=== PATIENT | male | born 1950 ===

== ENCOUNTER 2017-03-06 01:26 | Emergency (ER) | payer OTHER ==
[2017-03-06 01:27] VITALS: BMI 37.7
[2017-03-06 01:36] VITALS: PULSE 82; O2SAT 98
[2017-03-06 01:54] LABS: URINE BILIRUBIN NEGATIVE (NEGATIVE); URINE BLOOD 3+ (NEGATIVE); URINE CLARITY Hazy (Clear); URINE COLOR Yellow (YELLOW); URINE GLUCOSE (UA) NORMAL (Normal); URINE LEUKOCYTE ESTERASE NEG Leu/uL (Negative); URINE NITRATE NEGATIVE (NEGATIVE); URINE PROTEIN NEGATIVE (NEGATIVE); URINE UROBILINOGEN NORMAL mg/dL (0.2-1.0)
[2017-03-06] MEDS ORDERED: Sodium Chloride 0.9% 500 ML IV STA (01:59)
[2017-03-06] MEDS ORDERED: Sodium Chloride 0.9% 1,000 ML ONE (02:17)
[2017-03-06 02:21] LABS: BASO % 0.2 % (0.0-2.0); EOS # 0.2 K/uL (0.0-0.7); HEMOGLOBIN 13.6 g/dL (12.0-18.0); LYMPH # 1.4 K/uL (1.0-4.3); LYMPH % 14.8 % (20.0-40.0); MEAN CELL VOLUME 86.5 fL (80.0-94.0); MEAN CORPUSCULAR HEMOGLOBIN 27.7 pg (27.0-31.0); MEAN PLATELET VOLUME 10.3 fL (7.2-11.7); MONO # 0.8 K/uL (0.0-0.8); MONO % 9.1 % (0.0-10.0); NEUT # 6.8 K/uL (1.8-7.0); NEUT % 73.9 % (50.0-75.0); RBC 4.9 Mil/uL (4.40-5.90); RED CELL DISTRIBUTION WIDTH 14.1 % (11.5-14.5); WHITE BLOOD COUNT 9.3 K/uL (4.8-10.8)
[2017-03-06 02:28] LABS: ALBUMIN 3.8 g/dL (3.5-5.0)
[2017-03-06 02:31] LABS: ALB/GLOB RATIO 1.3 (1.0-2.1); AST/SGOT 48 U/L (17-59); GFR AFRICAN-AMERICAN > 60; GFR NON-AFRICAN AMERICAN > 60
[2017-03-06 02:32] LABS: ALT/SGPT 56 U/L (21-72); BLOOD UREA NITROGEN 11 mg/dL (9-20); CALCIUM 8.2 mg/dl (8.6-10.4)
--- NOTE | 2017-03-06 04:03 | C.PDOC ---
History Of Present Illness A 66 y/o M c/o sudden onset sharp left flank pain that radiates to the left lower abdomen AMBULATORY CARE COORDINATOR. Pt reports laying in bed where he was turning and felt a sharp pain to the flank area. Pain is worse with movement. Reports nausea, but denies urinary symptoms, weakness, numbness, vomiting, diarrhea, or any other complaints. Time Seen by Provider: 03/06/17 01:50 Chief Complaint (Nursing): Back Pain History Per: Patient History/Exam Limitations: no limitations Onset/Duration Of Symptoms: Hrs, Sudden Onset Current Symptoms Are (Timing): Still Present Quality Of Discomfort: Sharp, "Pain" Severity: Mild Associated Symptoms: denies: New Weakness, New Numbness Exacerbating Factor(s): Movement Recent travel outside of the [place]: No Additional History Per: Patient Past Medical History Reviewed: Historical Data, Nursing Documentation, Vital Signs Vital Signs: Last Vital Signs Temp 97.8 F 03/06/17 04:54 Pulse 82 03/06/17 01:34 Resp 14 03/06/17 04:54 BP 130/80 03/06/17 04:54 Pulse Ox 98 03/06/17 05:05 - Medical History PMH: HTN Denies: Colonic Polyps Family History: States: Unknown Family Hx - Social History Hx Tobacco Use: No Hx Alcohol Use: No Hx Substance Use: No - Immunization History Hx Tetanus Toxoid Vaccination: No Hx Influenza Vaccination: Yes Hx Pneumococcal Vaccination: No Review Of Systems Except As Marked, All Systems Reviewed And Found Negative. Gastrointestinal: Positive for: Nausea, Abdominal Pain (Radiation, left lower abdomen). Negative for: Vomiting, Diarrhea Genitourinary: Negative for: Dysuria, Frequency, Incontinence, Hematuria Musculoskeletal: Positive for: Back Pain (Left flank pain) Neurological: Negative for: Weakness, Numbness Physical Exam - Physical Exam Appears: Non-toxic, No Acute Distress Skin: Warm, Dry Head: Atraumatic, Normacephalic Eye(s): bilateral: Normal Inspection Gastrointestinal/Abdominal: Soft, Tenderness (LLQ ), No Guarding, No Rebound Back: CVA Tenderness (Left ), No Vertebral Tenderness Neurological/Psych: Oriented x3, Normal Speech, Normal Cognition Gait: Steady (Ambulatory in ER) ED Course And Treatment - Laboratory Results Result Diagrams: 03/06/17 02:16 03/06/17 02:16 O2 Sat by Pulse Oximetry: 98 (RA) Pulse Ox Interpretation: Normal Progress Note: Impression: A 66 y/o M c/o sudden onset sharp left flank pain that radiates to the left lower abdomen AMBULATORY CARE COORDINATOR. Plans: CT abd w.o contrast, Valium , Toradol, Flomax, IV fluids. Labbs and CT results d/w pt. Pt is in no acute distress and is resting comfortable and is improving with the flank and abdominal pain. Pt was given medications for the symptom. Pt was instructed to follow up with or clinic for further evaluation. Return precautions were given and understood by patient. Disposition Counseled Patient/Family Regarding: Diagnosis, Need For Followup - Disposition Referrals: Dennys Cardenas MD [Staff Provider] - Disposition: HOME/ ROUTINE Disposition Time: 04:38 Condition: STABLE Additional Instructions: Increase PO fluids Take Flomax and motrin for pain Follow up with urologist Return to ER if worse Prescriptions: Ibuprofen [Motrin] 600 mg PO Q6H #30 tab Tamsulosin [Flomax] 0.4 mg PO DAILY #7 cap Instructions: Renal Colic (ED) Print Language: THAI - Clinical Impression Clinical Impression: Kidney stone on left side - Scribe Statement The provider has reviewed the documentation as recorded by the Scribe Leia davalos All medical record entries made by the Scribe were at my direction and personally dictated by me. I have reviewed the chart and agree that the record accurately reflects my personal performance of the history, physical exam, medical decision making, and the department course for this patient. I have also personally directed, reviewed, and agree with the discharge instructions and disposition.
[2017-03-06 04:55] VITALS: BP 130/80; RESP 14; TEMP 97.8
--- NOTE | 2017-03-06 09:18 | CT ---
PROCEDURE: CT Abdomen and Pelvis without intravenous contrast HISTORY: Left flank pain. Abdominal pain. COMPARISON: None. TECHNIQUE: Multiple contiguous axial images were performed through the abdomen and pelvis without intravenous contrast. Subsequently, sagittal and coronal reformatted images were obtained. Radiation dose: Total exam DLP = 821 mGy-cm. This CT exam was performed using one or more of the following dose reduction techniques: Automated exposure control, adjustment of the mA and/or kV according to patient size, and/or use of iterative reconstruction technique. FINDINGS: LOWER THORAX: Cardiomegaly. Atelectasis at the lung bases. LIVER: Prominent liver with fatty infiltration. GALLBLADDER AND BILE DUCTS: Unremarkable. PANCREAS: Unremarkable. No gross lesion or ductal dilatation. SPLEEN: Unremarkable. ADRENALS: Unremarkable. No mass. KIDNEYS AND URETERS: 4 millimeter calculus in the distal left ureter resulting in mild left hydroureteronephrosis. Additional calculi/calcification the lower pole of the left kidney measuring to 7 millimeters. VASCULATURE: Unremarkable. No aortic aneurysm. BOWEL: Colonic diverticuli APPENDIX: Unremarkable. Normal appendix. PERITONEUM: Unremarkable. No free fluid. No free air. LYMPH NODES: Unremarkable. No enlarged lymph nodes. BLADDER: Moderately distended urinary bladder. REPRODUCTIVE: Heterogeneous and prominent prostate with associated calcification. Clinical correlation. BONES: Degenerative changes in the spine. Mild retrolisthesis of L5 on S1. OTHER FINDINGS: None. IMPRESSION: 4 millimeter calcification in the distal left ureter resulting in mild left hydroureteronephrosis. Additional 7 millimeter calculus in the lower pole of the left kidney. Additional findings as above. These findings were preliminarily reported at 4:01 on 03/06/[address] Nancy Patricia from [facility] [employer].
== END 2017-03-06 04:55 | disposition home or self-care (01) ==
LOC: C.ER 01:26
DX: N13.2 Hydronephrosis with renal and ureteral calculous obstruction (principal)
CPT/HCPCS: 74176; 80053; 81001; 85025; 96361; 96374; 99283; J1885; J7040

== ENCOUNTER 2017-09-16 08:42 | Inpatient (IN) | payer OTHER ==
[2017-09-16 08:57] VITALS: BMI 35.6
--- NOTE | 2017-09-16 09:10 | C.PDOC ---
History Of Present Illness 66 y/o male with PMHx of HTn presents to ED with complaints of x1 month chest pain associated with dry cough worse last night and localized to left side. Patient states 3 months ago he had cold like symptoms that were resolved with OTC medication but dry cough persisted and now developed chest pain worse when taking deep breaths. Patient also complaints of "mild" headache for 2 days and states he is compliant with medication but blood pressure has been high for 1 month. Patient denies sob, fever, chills, vision changes, nausea, weakness, numbness or any other complaints at this time. Time Seen by Provider: 09/16/17 09:09 Chief Complaint (Nursing): High Blood Pressure History Per: Patient History/Exam Limitations: no limitations Onset/Duration Of Symptoms: Days Current Symptoms Are (Timing): Still Present Associated Symptoms: Chest Pain, Headache Past Medical History Reviewed: Historical Data, Nursing Documentation, Vital Signs Vital Signs: Last Vital Signs Temp 97.2 F L 09/18/17 12:00 Pulse 112 H 09/18/17 13:57 Resp 18 09/18/17 13:57 BP 109/62 09/18/17 12:00 Pulse Ox 98 09/18/17 13:57 - Medical History PMH: HTN Surgical History: No Surg Hx Family History: States: No Known Family Hx - Social History Hx Tobacco Use: No Hx Alcohol Use: No Hx Substance Use: No - Immunization History Hx Tetanus Toxoid Vaccination: No Hx Influenza Vaccination: No Hx Pneumococcal Vaccination: No Review Of Systems Except As Marked, All Systems Reviewed And Found Negative. Constitutional: Negative for: Fever, Chills Cardiovascular: Positive for: Chest Pain Respiratory: Positive for: Cough. Negative for: Shortness of Breath Gastrointestinal: Negative for: Nausea, Vomiting Skin: Negative for: Rash Neurological: Positive for: Headache. Negative for: Weakness, Numbness Physical Exam - Physical Exam Appears: Non-toxic, No Acute Distress Skin: Warm, Dry, No Rash Head: Atraumatic, Normacephalic Oral Mucosa: Moist Neck: Normal ROM, Supple Chest: Other (Reproducible pain to palpation on left anterior chest wall ) Cardiovascular: Rhythm Regular Respiratory: Normal Breath Sounds, No Rales, No Rhonchi, No Wheezing Gastrointestinal/Abdominal: Soft, No Tenderness, No Guarding, No Rebound Extremity: Normal ROM, No Pedal Edema, Capillary Refill (<2 seconds) Neurological/Psych: Oriented x3, Normal Motor, Normal Sensation ED Course And Treatment - Laboratory Results Result Diagrams: 09/16/17 09:47 09/16/17 09:47 O2 Sat by Pulse Oximetry: 98 (RA) Pulse Ox Interpretation: Normal Medical Decision Making Medical Decision Making: Plan: ECG, CXR, Blood work, Aspirin and Toradol ordered Progress: ECG- NSR 76bpm, Left axis deviation. No acute ischemia Disposition - Disposition Disposition: HOSPITALIZED Disposition Time: 11:41 Condition: STABLE - Clinical Impression Clinical Impression: Chest pain - Scribe Statement The provider has reviewed the documentation as recorded by the Luisibkati Mas All medical record entries made by the Mary were at my direction and personally dictated by me. I have reviewed the chart and agree that the record accurately reflects my personal performance of the history, physical exam, medical decision making, and the department course for this patient. I have also personally directed, reviewed, and agree with the discharge instructions and disposition.
[2017-09-16 09:51] LABS: BASO % 0.5 % (0.0-2.0); EOS # 0.3 K/uL (0.0-0.7); EOS % 3.3 % (0.0-4.0); HEMOGLOBIN 14.1 g/dL (12.0-18.0); LYMPH # 1.8 K/uL (1.0-4.3); LYMPH % 21.4 % (20.0-40.0); MEAN CELL VOLUME 85.9 fL (80.0-94.0); MEAN CORPUSCULAR HEMOGLOBIN 28.8 pg (27.0-31.0); MEAN CORPUSCULAR HGB CONC 33.5 g/dL (33.0-37.0); MONO # 0.8 K/uL (0.0-0.8); MONO % 9.7 % (0.0-10.0); NEUT # 5.6 K/uL (1.8-7.0); NEUT % 65.1 % (50.0-75.0); RBC 4.9 Mil/uL (4.40-5.90); RED CELL DISTRIBUTION WIDTH 13.6 % (11.5-14.5); WHITE BLOOD COUNT 8.6 K/uL (4.8-10.8)
--- NOTE | 2017-09-16 10:10 | RAD ---
HISTORY: cp COMPARISON: Chest x-ray performed 03/16/17 TECHNIQUE: Chest, one view. FINDINGS: Examination limited by habitus and hypoinflation. LUNGS: No focal consolidation. 2.2 cm rounded density at the right lower lobe. Please note that chest x-ray has limited sensitivity for the detection of pulmonary masses. PLEURA: No significant pleural effusion identified. No definite pneumothorax . CARDIOVASCULAR: Heart size appears top normal. OSSEOUS STRUCTURES: No acute osseous abnormality identified. VISUALIZED UPPER ABDOMEN: Unremarkable. OTHER FINDINGS: None. IMPRESSION: 2.2 cm rounded density at the right lower lobe; suggest further evaluation with chest CT.
[2017-09-16 10:19] LABS: ALB/GLOB RATIO 1.3 (1.0-2.1); ALT/SGPT 49 U/L (21-72); AST/SGOT 42 U/L (17-59); BLOOD UREA NITROGEN 10 mg/dL (9-20); CALCIUM 8.8 mg/dl (8.6-10.4); GFR AFRICAN-AMERICAN > 60; GFR NON-AFRICAN AMERICAN > 60
[2017-09-16 10:40] LABS: INR 1.1; PROTHROMBIN TIME 12.2 SECONDS (9.7-12.2)
[2017-09-16 12:19] LABS: CK-MB 0.52 ng/mL (0.0-3.38)
--- NOTE | 2017-09-17 00:01 | HP ---
The patient is a 66-year-old male. CHIEF COMPLAINT: Chest pain. HISTORY OF PRESENT ILLNESS: Mr. Maco Ryder, 66-year-old male with past medical history of hypertension, came to the emergency department with complaining of 1-month chest pain associated with dry cough, worse at night and localized to the left side. The patient is also complaining of a headache for 2 days. He states that he is compliant with medications, but blood pressure has been high for 1 month. Past to 3 months ago, he had cold-like symptoms that were resolved with OTC medications, but dry cough persists and now derived chest pain, worse when taking deep breath. The patient denies shortness of breath, fever, chills, visual changes, nausea, vomiting, diarrhea. No fever. No chills. PAST MEDICAL HISTORY: Hypertension. PAST SURGICAL HISTORY: No surgical history. SOCIAL HISTORY: No smoking. No drugs. No ethanol. ALLERGIES: THE PATIENT IS NOT ALLERGIC WITH ANY MEDICATIONS. REVIEW OF SYSTEMS: The patient was seen and examined on the bedside. Looking comfortable. No nausea, vomiting, diarrhea. No hematuria, hematochezia. Still complaining of chest tenderness. No fever. No chills. Once in a while coughing. No shortness of breath. PHYSICAL EXAMINATION: VITAL SIGNS: Temperature 98.6, pulse 87, respiratory rate 18, blood pressure 129/90. HEENT: Head is normocephalic, atraumatic. Eyes PERRLA. Extraocular muscles are intact. Conjunctivae clear. Nose is patent. Mucous membrane moist. NECK: Supple. No carotid bruit. No JVD or thyromegaly. CHEST: Bilaterally symmetrical. HEART: S1 and S2 positive. LUNGS: Clear to auscultation. ABDOMEN: Soft. Bowel sounds positive. No organomegaly. EXTREMITIES: No edema. No cyanosis. NEUROLOGICAL: The patient is awake and alert. Moving all 4 extremities. No focal deficits. LABORATORY DATA: White blood cells 8.6, hemoglobin 14.1, hematocrit 42.1, platelets 188. Sodium 135, potassium 4.0, BUN 10, creatinine 0.7, glucose of 111, troponin 0.0120 x2. ASSESSMENT AND PLAN: Mr. Maco Ryder, 66-year-old male came with chest pain, hypertension, has hyperglycemia. Troponin x2 sets are negative. Rule out upper respiratory infection. Rule out coughing. History of hypertension. We admitted the patient. Chest x-ray done. Consult called with Dr. Chepe Rodriguez for chest pain. Gastrointestinal, deep venous thrombosis prophylaxis. Repeat labs. We will follow up. Selena Henderson MD
[2017-09-17] MEDS: MethylPREDNISolone 40 mg Vial IVP SCH ×3 (00:26→21:23)
[2017-09-17] MEDS: Albuterol-Ipratrop 3 mg / 0.5 (3 ml) UD INH SCH ×4 (01:10→21:07)
--- NOTE | 2017-09-17 05:45 | CP.PCM.CON ---
History of Present Illness - History of Present Illness History of Present Illness: Consutation for chest pain and HTN 66-year-old male with history of hypertension dyslipidemia presented with complains of atypical pleuritic chest pain and had an episode of URI symptoms about few months ago at which time he was initiated on antibiotics patient subsequently had continued episode of cough worse with laying down also had this left-sided pleuritic chest pain worse with movement and coughing fairly active at baseline ACS and EKG are essentially unremarkable. Review of Systems - Review of Systems All systems: reviewed and no additional remarkable complaints except - Constitutional Constitutional: As Per HPI - EENT Eyes: As Per HPI Ears: As Per HPI Nose/Mouth/Throat: As Per HPI - Cardiovascular Cardiovascular: As Per HPI - Respiratory Respiratory: As Per HPI - Gastrointestinal Gastrointestinal: As Per HPI - Genitourinary Genitourinary: As Per HPI - Reproductive: Male Reproductive:Male: As Per HPI - Musculoskeletal Musculoskeletal: As Per HPI - Integumentary Integumentary: As Per HPI - Neurological Neurological: As Per HPI - Psychiatric Psychiatric: As Per HPI - Endocrine Endocrine: As Per HPI - Hematologic/Lymphatic Hematologic: As Per HPI Past Patient History - Infectious Disease Hx of Infectious Diseases: None - Past Medical History & Family History Past Medical History?: Yes - Past Social History Smoking Status: Never Smoked - CARDIAC Hx Hypertension: Yes - PULMONARY Hx Respiratory Disorders: No - NEUROLOGICAL Hx Neurological Disorder: No - RENAL Hx Chronic Kidney Disease: No - ENDOCRINE/METABOLIC Hx Endocrine Disorders: No - HEMATOLOGICAL/ONCOLOGICAL Hx Blood Disorders: No - INTEGUMENTARY Hx Dermatological Problems: No - MUSCULOSKELETAL/RHEUMATOLOGICAL Hx Musculoskeletal Disorders: No Hx Falls: No Other/Comment: LT knee problem - having PT - GASTROINTESTINAL Hx Gastrointestinal Disorders: No - GENITOURINARY/GYNECOLOGICAL Hx Genitourinary Disorders: No - PSYCHIATRIC Hx Psychophysiologic Disorder: No Hx Substance Use: No - SURGICAL HISTORY Hx Surgeries: No - ANESTHESIA Hx Anesthesia: No Hx Anesthesia Reactions: No Hx Malignant Hyperthermia: No Has any member of the family had a problem w/ anesthesia?: No Meds Allergies/Adverse Reactions: Allergies Allergy/AdvReac Type Severity Reaction Status Date / Time No Known Allergies Allergy Verified 09/16/17 08:55 - Medications Medications: Current Medications Acetaminophen (Tylenol 325mg Tab) 650 mg PO Q4H PRN PRN Reason: pain fever Albuterol/Ipratropium (Duoneb 3 Mg/0.5 Mg (3 Ml) Ud) 3 ml INH RQ6 [facility] Last Admin: 09/17/17 01:10 Dose: 3 ml Amlodipine Besylate (Norvasc) 5 mg PO DAILY [facility] Aspirin (Ecotrin) 81 mg PO HS [facility] Famotidine (Pepcid) 40 mg PO DAILY [facility] Methylprednisolone (Solu-Medrol) 40 mg IVP Q12 [facility] Last Admin: 09/17/17 00:26 Dose: 40 mg Fluticasone/Salmeterol (Advair Diskus 500/50) 1 puff INH RQ12 [facility] Physical Exam - Constitutional Appears: Well - Head Exam Head Exam: ATRAUMATIC, NORMAL INSPECTION, NORMOCEPHALIC - Eye Exam Eye Exam: EOMI, Normal appearance, PERRL Pupil Exam: NORMAL ACCOMODATION, PERRL - ENT Exam ENT Exam: Mucous Membranes Moist, Normal Exam - Neck Exam Neck exam: Positive for: Normal Inspection - Respiratory Exam Respiratory Exam: Clear to Auscultation Bilateral, NORMAL BREATHING PATTERN - Cardiovascular Exam Cardiovascular Exam: REGULAR RHYTHM - GI/Abdominal Exam GI & Abdominal Exam: Normal Bowel Sounds, Soft. absent: Tenderness - Extremities Exam Extremities exam: Positive for: normal inspection - Back Exam Back exam: NORMAL INSPECTION - Neurological Exam Neurological exam: Alert, CN II-XII Intact, Normal Gait, Oriented x3, Reflexes Normal - Psychiatric Exam Psychiatric exam: Normal Affect, Normal Mood - Skin Skin Exam: Dry, Intact, Normal Color, Warm Results - Vital Signs Recent Vital Signs: Last Vital Signs Temp 98.3 F 09/16/17 23:00 Pulse 96 H 09/17/17 04:07 Resp 20 09/16/17 23:00 BP 136/85 09/16/17 23:00 Pulse Ox 97 09/16/17 23:00 - Labs Result Diagrams: 09/19/17 08:16 09/20/17 06:58 Labs: Laboratory Results - last 24 hr 09/16/17 09/16/17 09/16/17 09:47 09:47 10:16 WBC 8.6 RBC 4.90 Hgb 14.1 Hct 42.1 MCV 85.9 MCH 28.8 MCHC 33.5 RDW 13.6 Plt Count 188 MPV 10.0 Neut % (Auto) 65.1 Lymph % (Auto) 21.4 [place] % (Auto) 9.7 Eos % (Auto) 3.3 Baso % (Auto) 0.5 Neut # 5.6 Lymph # 1.8 [place] # 0.8 Eos # 0.3 Baso # 0.0 PT 12.2 INR 1.1 APTT 34 D-Dimer, Quantitative Sodium 135 Potassium 4.0 Chloride 104 Carbon Dioxide 22 Anion Gap 13 BUN 10 Creatinine 0.7 L Est GFR ( Amer) > 60 Est GFR (Non-Af Amer) > 60 Random Glucose 111 H Calcium 8.8 Total Bilirubin 0.6 AST 42 ALT 49 Alkaline Phosphatase 85 Total Creatine Kinase 76 CK-MB (Mass) 0.52 Troponin I < 0.0120 Total Protein 7.1 Albumin 4.0 Globulin 3.1 Albumin/Globulin Ratio 1.3 09/16/17 09/16/17 10:53 15:33 WBC RBC Hgb Hct MCV MCH MCHC RDW Plt Count MPV Neut % (Auto) Lymph % (Auto) [place] % (Auto) Eos % (Auto) Baso % (Auto) Neut # Lymph # [place] # Eos # Baso # PT INR APTT D-Dimer, Quantitative 240 Sodium Potassium Chloride Carbon Dioxide Anion Gap BUN Creatinine Est GFR ( Amer) Est GFR (Non-Af Amer) Random Glucose Calcium Total Bilirubin AST ALT Alkaline Phosphatase Total Creatine Kinase CK-MB (Mass) Troponin I < 0.0120 Total Protein Albumin Globulin Albumin/Globulin Ratio Assessment & Plan (1) Chest pain Assessment and Plan: r/o acs telemetry echo Status: Acute (2) HTN (hypertension) Assessment and Plan: cont home meds Status: Acute
[2017-09-17] MEDS: Fluticasone-Salmeterol 500-50mcg Diskus INH SCH ×2 (07:44→21:06)
[2017-09-17] MEDS: Enoxaparin 40 mg Syringe SC SCH (09:27)
--- NOTE | 2017-09-17 10:57 | CARD ---
APPROVED REPORT EKG Measurement Heart [id number] <Conclusion> Normal sinus rhythm Left axis deviation Abnormal ECG
--- NOTE | 2017-09-17 13:01 | CT ---
CT chest without IV contrast Indication: New right lower lobe nodule Technique: Contiguous axial images were obtained through the chest without intravenous contrast enhancement. Sagittal and coronal reconstructions were generated and reviewed. This CT exam was performed using 1 or more of the falling dose reduction techniques: Automated exposure control, adjustment of the MAA and/or kV according to patient size, and/or use of iterative reconstruction technique. Radiation dose (DLP): 747.26 MGy-cm. Comparison: Chest x-ray performed 09/16/17 Findings: Visualized portions of the inferior thyroid gland demonstrates 6 mm right lower pole hypodense not. The unenhanced mediastinal and hilar vascular structures appear grossly unremarkable. The heart appears within normal limits of size. No focal consolidation. No pleural effusion. No pneumothorax. 3 mm right upper lobe subpleural nodule (series 3, image 40). Limited visualization of the noncontrast upper abdomen appears grossly unremarkable. Bilateral gynecomastia. Degenerative changes of the spine. Impression: 6 mm right lower pole thyroid hypodense nodule. Suggest follow-up nonemergent thyroid ultrasound for further evaluation if indicated. 3 mm right upper lobe subpleural nodule. In the absence of risk factors for lung cancer, no specific imaging follow-up is required. If the patient is a smoker or has other risk factors, follow-up CT at 12 months is recommended to document stability. Please note that nodular density seen on chest x-ray performed 09/16/17 measuring approximately 2.2 cm in the right lower lobe is not identified on this study. Finding likely reflected artifact, possibly external.
--- NOTE | 2017-09-17 23:18 | CP.PCM.PN ---
<Radha Gasca - Last Filed: 09/18/17 21:43> Subjective - Date & Time of Evaluation Date of Evaluation: 09/17/17 Time of Evaluation: 09:00 - Subjective Subjective: Chief complaint: Cough, chest pain 66 yr Hispainic male w/ history of HTN. Pt was seen at the bedside on 09/17/17. Recently traveled from [place] and feels that "the cold got stuck in his chest." Since then, he reports a cough that has been ongoing since 3 months ago. He also states feeling a lot of "stress." He denies any fever, chills, n/v , diarrhea, constipation, urinary changes or distress. Objective - Vital Signs/Intake and Output Vital Signs (last 24 hours): Temp Pulse Resp BP Pulse Ox 98.1 F 124 H 20 139/63 96 09/17/17 15:00 09/17/17 18:00 09/17/17 15:00 09/17/17 15:00 09/17/17 18:00 Intake and Output: 09/17/17 09/18/17 18:59 06:59 Intake Total 400 Balance 400 - Medications Medications: Current Medications Acetaminophen (Tylenol 325mg Tab) 650 mg PO Q4H PRN PRN Reason: pain fever Albuterol/Ipratropium (Duoneb 3 Mg/0.5 Mg (3 Ml) Ud) 3 ml INH RQ6 [facility] Last Admin: 09/17/17 21:07 Dose: 3 ml Amlodipine Besylate (Norvasc) 5 mg PO DAILY [facility] Last Admin: 09/17/17 09:27 Dose: 5 mg Aspirin (Ecotrin) 81 mg PO HS [facility] Last Admin: 09/17/17 21:23 Dose: 81 mg Enoxaparin Sodium (Lovenox) 40 mg SC DAILY [facility] Last Admin: 09/17/17 09:27 Dose: 40 mg Famotidine (Pepcid) 40 mg PO DAILY [facility] Last Admin: 09/17/17 09:27 Dose: 40 mg Methylprednisolone (Solu-Medrol) 40 mg IVP Q12 [facility] Last Admin: 09/17/17 21:23 Dose: 40 mg Fluticasone/Salmeterol (Advair Diskus 500/50) 1 puff INH RQ12 [facility] Last Admin: 01/19/18 21:06 Dose: 1 puff - Labs Labs: 09/16/17 09:47 09/16/17 09:47 PT 12.2 SECONDS (9.7-12.2) 09/16/17 10:16 INR 1.1 09/16/17 10:16 APTT 34 SECONDS (21-34) 09/16/17 10:16 - Constitutional Appears: Well - Head Exam Head Exam: ATRAUMATIC, NORMAL INSPECTION, NORMOCEPHALIC - Eye Exam Eye Exam: EOMI, Normal appearance, PERRL Pupil Exam: NORMAL ACCOMODATION, PERRL - ENT Exam ENT Exam: Mucous Membranes Moist, Normal Exam - Neck Exam Neck Exam: Full ROM, Normal Inspection. absent: Lymphadenopathy - Respiratory Exam Respiratory Exam: Decreased Breath Sounds, NORMAL BREATHING PATTERN - Cardiovascular Exam Cardiovascular Exam: REGULAR RHYTHM, +S1, +S2. absent: Murmur - GI/Abdominal Exam GI & Abdominal Exam: Soft, Normal Bowel Sounds. absent: Tenderness - Extremities Exam Extremities Exam: Full ROM, Normal Capillary Refill, Normal Inspection. absent : Joint Swelling, Pedal Edema - Back Exam Back Exam: NORMAL INSPECTION - Neurological Exam Neurological Exam: Alert, Awake, CN II-XII Intact, Normal Gait, Oriented x3 - Psychiatric Exam Psychiatric exam: Normal Affect, Normal Mood - Skin Skin Exam: Dry, Intact, Normal Color, Warm Assessment and Plan (1) Dehydration Status: Acute (2) Right upper lobe consolidation Status: Acute (3) Right thyroid nodule Status: Acute (4) Chest pain Status: Acute (5) HTN (hypertension) Status: Acute (6) Tachycardia Status: Acute - Assessment and Plan (Free Text) Plan: IV solumedryl. GI/VTE prophlyaxis ordered. Labs ordered. Ultrasound Neck. Consults: Cardio - Dr. Rodriguez Reviewed: CT chest = inferior thyroid gland 6mm R lower pole hypodense not/ 3mm RUL subpleural nodule / bilateral gynecomastia/ DJD spine CXR = 2.2 cm rounded density RLL ECG = ABNORMAL, NSR, L axis deviation <Selena Henderson - Last Filed: 09/19/17 10:54> Subjective - Subjective Subjective: . Objective - Vital Signs/Intake and Output Vital Signs (last 24 hours): Temp Pulse Resp BP Pulse Ox 97.9 F 110 H 20 127/77 97 09/19/17 07:05 09/19/17 09:00 09/19/17 07:05 09/19/17 07:05 09/19/17 07:05 - Medications Medications: Current Medications Acetaminophen (Tylenol 325mg Tab) 650 mg PO Q4H PRN PRN Reason: pain fever Albuterol/Ipratropium (Duoneb 3 Mg/0.5 Mg (3 Ml) Ud) 3 ml INH RQ6 [facility] Last Admin: 09/19/17 08:17 Dose: 3 ml Amlodipine Besylate (Norvasc) 5 mg PO DAILY [facility] Last Admin: 09/19/17 10:13 Dose: 5 mg Aspirin (Ecotrin) 81 mg PO HS [facility] Last Admin: 09/18/17 21:00 Dose: 81 mg Enoxaparin Sodium (Lovenox) 40 mg SC DAILY [facility] Last Admin: 09/19/17 10:13 Dose: 40 mg Famotidine (Pepcid) 40 mg PO DAILY [facility] Last Admin: 09/19/17 10:13 Dose: 40 mg Methylprednisolone (Solu-Medrol) 40 mg IVP Q12 [facility] Last Admin: 09/19/17 10:13 Dose: 40 mg Fluticasone/Salmeterol (Advair Diskus 500/50) 1 puff INH RQ12 [facility] Last Admin: 09/19/17 08:17 Dose: 1 puff - Labs Labs: 09/19/17 08:16 09/19/17 08:16 PT 12.2 SECONDS (9.7-12.2) 09/16/17 10:16 INR 1.1 09/16/17 10:16 APTT 34 SECONDS (21-34) 09/16/17 10:16 Assessment and Plan - Assessment and Plan (Free Text) Plan: 66 yr Hispainic male w/ history of HTN. Pt was seen at the bedside on 09/17/17. Recently traveled from [place] and feels that "the cold got stuck in his chest." Since then, he reports a cough that has been ongoing since 3 months ago. He also states feeling a lot of "stress." He denies any fever, chills, n/v , diarrhea, constipation, urinary changes or distress. pt is seen and examined at bed side , agreed all above , will f/u
[2017-09-18] MEDS: Albuterol-Ipratrop 3 mg / 0.5 (3 ml) UD INH SCH ×4 (01:07→20:14)
[2017-09-18] MEDS: Enoxaparin 40 mg Syringe SC SCH (09:23)
[2017-09-18] MEDS: MethylPREDNISolone 40 mg Vial IVP SCH ×2 (09:24→21:00)
[2017-09-18] MEDS: Fluticasone-Salmeterol 500-50mcg Diskus INH SCH ×2 (09:47→20:18)
[2017-09-18] MEDS ORDERED: Metoprolol Succinate 25 mg XL Tab PO ONE (10:53)
[2017-09-18] MEDS ORDERED: Digoxin 250 mcg (0.25 mg) Tab PO STA (12:49)
[2017-09-18 13:01] VITALS: PULSE 128
[2017-09-19] MEDS: Albuterol-Ipratrop 3 mg / 0.5 (3 ml) UD INH SCH ×4 (01:03→18:59)
[2017-09-19] MEDS ORDERED: guaiFENesin 100 mg/5 ml Syrup UD PO ONE (06:10)
[2017-09-19] MEDS: Fluticasone-Salmeterol 500-50mcg Diskus INH SCH ×2 (08:17→18:59)
[2017-09-19 08:25] LABS: HEMOGLOBIN 14.1 g/dL (12.0-18.0); MEAN CELL VOLUME 86.6 fL (80.0-94.0); MEAN CORPUSCULAR HEMOGLOBIN 28.3 pg (27.0-31.0); MEAN CORPUSCULAR HGB CONC 32.7 g/dL (33.0-37.0); MEAN PLATELET VOLUME 10.6 fL (7.2-11.7); RBC 4.97 Mil/uL (4.40-5.90); RED CELL DISTRIBUTION WIDTH 14.1 % (11.5-14.5)
[2017-09-19 08:29] LABS: WHITE BLOOD COUNT 21.6 K/uL (4.8-10.8)
[2017-09-19 08:52] LABS: ALB/GLOB RATIO 1.3 (1.0-2.1); ALBUMIN 3.9 g/dL (3.5-5.0); ALT/SGPT 38 U/L (21-72); AST/SGOT 25 U/L (17-59); BLOOD UREA NITROGEN 19 mg/dL (9-20); CALCIUM 9.1 mg/dl (8.6-10.4); GFR AFRICAN-AMERICAN > 60; GFR NON-AFRICAN AMERICAN > 60; HDL CHOLESTEROL 44 mg/dL (30-70)
[2017-09-19 09:02] LABS: LDL CHOLESTEROL 96 mg/dL (0-129)
[2017-09-19 09:08] LABS: T3 UPTAKE 33.9 % (23.0-41.0)
[2017-09-19 09:24] LABS: T3 1.46 nmol/L (1.49-2.60)
--- NOTE | 2017-09-19 10:03 | US ---
HISTORY: R lower pole nodule TECHNIQUE: Sonographic evaluation of the thyroid gland. COMPARISON: Not available FINDINGS: RIGHT LOBE: Measures 5.5 x 1.6 x 1.7 cm. Normal echotexture and flow. Nodules: Lower pole cystic nodule, 6 x 7 x 7 mm. No solid nodule. LEFT LOBE: Measures 5.0 x 1.4 x 1.3 cm. Normal echotexture and flow. Nodules: Hypoechoic solid nodule in lower pole, 1.3 x 0.8 x 1.0 cm. ISTHMUS: Measures 0.4 cm. Normal echotexture and flow. Nodules: None OTHER FINDINGS: None . IMPRESSION: 7 mm right lower pole cystic nodule. 13 mm left lower pole hypoechoic solid nodule.
[2017-09-19] MEDS: MethylPREDNISolone 40 mg Vial IVP SCH ×2 (10:13→21:58)
[2017-09-19] MEDS: Enoxaparin 40 mg Syringe SC SCH (10:13)
--- NOTE | 2017-09-19 10:46 | CARD ---
APPROVED REPORT EXAM: Two-dimensional and M-mode echocardiogram with Doppler and color Doppler. Other Information Quality : GoodRhythm : INDICATION Chest Pain 2D DIMENSIONS IVSd1.3 (0.7-1.1cm)LVDd3.4 (3.9-5.9cm) PWd1.4 (0.7-1.1cm)LVDs2.4 (2.5-4.0cm) FS (%) 30.7 %LVEF (%)59.4 (>50%) M-Mode DIMENSIONS Left Atrium (MM)4.15 (2.5-4.0cm)Aortic Root3.26 (2.2-3.7cm) Aortic Cusp Exc.2.20 (1.5-2.0cm) Mitral Valve MV E Ijafshoc104.8cm/sE/A ratio0.0 TDI E/Lateral E'0.0E/Medial E'0.0 Tricuspid Valve TR Peak [id number]/sTR Peak Gr.[id number] LEFT VENTRICLE The left ventricle is normal size. There is mild to moderate concentric left ventricular hypertrophy. The Ejection Fraction is 60-65%. There is normal LV segmental wall motion. Transmitral Doppler flow pattern is Grade I-abnormal relaxation pattern. RIGHT VENTRICLE The right ventricle is normal size. The right ventricular systolic function is normal. ATRIA The left atrium is mildly dilated. The right atrium size is normal. The interatrial septum is intact with no evidence for an atrial septal defect. AORTIC VALVE The aortic valve is normal in structure. There is mild aortic regurgitation. MITRAL VALVE The mitral valve is normal in structure. Mitral regurgitation is trace. TRICUSPID VALVE The tricuspid valve is normal in structure. There is mild tricuspid regurgitation. Right ventricular systolic pressure is estimated at 45 mmHg. There is mild-moderate pulmonary hypertension. PULMONIC VALVE The pulmonary valve is normal in structure. GREAT VESSELS The aortic root is normal size. The IVC is normal in size and collapses >50% with inspiration. PERICARDIAL EFFUSION There is no pericardial effusion. <Conclusion> The left ventricle is normal size. There is mild to moderate concentric left ventricular hypertrophy. The Ejection Fraction is 60-65%. Transmitral Doppler flow pattern is Grade I-abnormal relaxation pattern. The left atrium is mildly dilated. There is mild aortic regurgitation. Mitral regurgitation is trace. There is mild tricuspid regurgitation. Right ventricular systolic pressure is estimated at 45 mmHg. There is mild-moderate pulmonary hypertension.
--- NOTE | 2017-09-19 12:45 | CP.PCM.PN ---
<Rashad Morgan - Last Filed: 09/20/17 13:31> Subjective - Date & Time of Evaluation Date of Evaluation: 09/20/17 Time of Evaluation: 05:00 - Subjective Subjective: Cardiology Progress Note for Dr. Rodriguez - Rashad Morgan, DO PGY - 1 (please see nurse-physician communication for contact information) Patient seen and examined at bedside. RN at bedside providing translation. Patient elaborated on history - states that 3 months ago he had a URI, for which symptoms did not dissipate, thus he ordered some medications from [facility] (called it "broncho-cough). He states that his URI symptoms went away but he then developed this chronic cough. He further states that laying flat causes him to cough as well, at night. Patient denies generalized dyspnea on exertion, but states that walking up 3-4 flights of stairs will cause him to have shortness of breath and chest pain. He states the pain he is having right now from his cough is different than that chest pain. Objective - Vital Signs/Intake and Output Vital Signs (last 24 hours): Temp Pulse Resp BP Pulse Ox 97.9 F 110 H 20 127/77 97 09/19/17 07:05 09/19/17 09:00 09/19/17 07:05 09/19/17 07:05 09/19/17 07:05 - Medications Medications: Current Medications Acetaminophen (Tylenol 325mg Tab) 650 mg PO Q4H PRN PRN Reason: pain fever Albuterol/Ipratropium (Duoneb 3 Mg/0.5 Mg (3 Ml) Ud) 3 ml INH RQ6 [facility] Last Admin: 09/19/17 08:17 Dose: 3 ml Amlodipine Besylate (Norvasc) 5 mg PO DAILY [facility] Last Admin: 09/19/17 10:13 Dose: 5 mg Aspirin (Ecotrin) 81 mg PO HS [facility] Last Admin: 09/18/17 21:00 Dose: 81 mg Enoxaparin Sodium (Lovenox) 40 mg SC DAILY [facility] Last Admin: 09/19/17 10:13 Dose: 40 mg Famotidine (Pepcid) 40 mg PO DAILY [facility] Last Admin: 09/19/17 10:13 Dose: 40 mg Methylprednisolone (Solu-Medrol) 40 mg IVP Q12 [facility] Last Admin: 09/19/17 10:13 Dose: 40 mg Fluticasone/Salmeterol (Advair Diskus 500/50) 1 puff INH RQ12 [facility] Last Admin: 09/19/17 08:17 Dose: 1 puff - Labs Labs: 09/19/17 08:16 09/19/17 08:16 PT 12.2 SECONDS (9.7-12.2) 09/16/17 10:16 INR 1.1 09/16/17 10:16 APTT 34 SECONDS (21-34) 09/16/17 10:16 - Additional Findings Additional findings: Vital Signs as below Const'l: awake alert & oriented x 4, no acute distress Head/Neck: neck supple, no jvd, trachea midline, carotid midline, no cervical/head mass Eyes: pupils equally reactive to light and accommodation, nonicteric sclera, extraocular intact ENT: auditory acuity grossly intact, throat not congested, no nasal deformity Cardio: regular rate, regular rhythm, no murmurs rubs gallops, no carotid bruit, normal s1, s2 Pulm: no accessory muscle use, equal normal breath sounds bilaterally, clear to ausculation bilaterally Abd: soft non tender non-distended, normal bowel sounds x 4 quadrants, no palpable masses Derm: no rashes, no ulcers, no lesions Extr: no edema, no cyanosis, no calf tenderness, no lesions, no varicosities Neuro: cranial nerves II-XII grossly intact, upper extremity and lower extremity 5/5 muscle strength bilaterally, no loss of sensation in upper extremities, lower extremities bilaterally and core Assessment and Plan - Assessment and Plan (Free Text) Assessment: Assessment and Plan: 66 year old male with a past medical history of hypertension is presenting with chest pain after having a cough for 3 months. Tropes negative X 2, EKG shows LAD but no ST elevations. ECHO shows EF of 60-65%. Pleuritic Chest Pain likely 2/2 GERD - History of cough with laying down and absence of symptoms of PND and orthopnea - Tropes negative, EKG shows no MARTINA, and ECHO with minimal changes since last study - From a cardiac standpoint, patient is stable. Needs out patient follow up, ASCVD of 17.5% Hypertension - Continue enalapril 20 HS Dispo: Patient is stable from a cardiac standpoint - needs outpatient cardiac follow up due to ASCVD of 17.5% <Chepe Rodriguez - Last Filed: 09/20/17 14:32> Objective - Vital Signs/Intake and Output Vital Signs (last 24 hours): Temp Pulse Resp BP Pulse Ox 98.2 F 109 H 18 128/85 96 09/20/17 08:24 09/20/17 08:24 09/20/17 08:24 09/20/17 08:24 09/20/17 08:24 - Medications Medications: Current Medications Acetaminophen (Tylenol 325mg Tab) 650 mg PO Q4H PRN PRN Reason: pain fever Last Admin: 09/20/17 09:34 Dose: 650 mg Albuterol/Ipratropium (Duoneb 3 Mg/0.5 Mg (3 Ml) Ud) 3 ml INH RQ6 [facility] Last Admin: 09/20/17 13:20 Dose: 3 ml Amlodipine Besylate (Norvasc) 5 mg PO DAILY [facility] Last Admin: 09/20/17 09:35 Dose: 5 mg Aspirin (Ecotrin) 81 mg PO HS [facility] Last Admin: 09/19/17 21:58 Dose: 81 mg Enoxaparin Sodium (Lovenox) 40 mg SC DAILY [facility] Last Admin: 09/20/17 09:33 Dose: 40 mg Famotidine (Pepcid) 40 mg PO DAILY [facility] Last Admin: 09/20/17 09:35 Dose: 40 mg Fluticasone Propionate (Flonase) 1 spr NAOMY BID [facility] Last Admin: 09/20/17 13:55 Dose: 1 spray Methylprednisolone (Solu-Medrol) 20 mg IVP Q12 [facility] Fluticasone/Salmeterol (Advair Diskus 500/50) 1 puff INH RQ12 [facility] Last Admin: 09/20/17 10:05 Dose: Not Given - Labs Labs: 09/19/17 08:16 09/20/17 06:58 PT 12.2 SECONDS (9.7-12.2) 09/16/17 10:16 INR 1.1 09/16/17 10:16 APTT 34 SECONDS (21-34) 09/16/17 10:16 Assessment and Plan (1) Chest pain Status: Acute (2) HTN (hypertension) Status: Acute Attending/Attestation - Attestation I have personally seen and examined this patient.: Yes I have fully participated in the care of the patient.: Yes I have reviewed all pertinent clinical information, including history, physical exam and plan: Yes Notes (Text): 09/20/17 14:32 sx atypical ACS ruled out sx ? GERD induced bronchospasm outpt stress testing stable for dc home
[2017-09-19 15:36] LABS: SQUAMOUS EPITHIAL < 1 /hpf (0-5); URINE BILIRUBIN NEGATIVE (NEGATIVE); URINE BLOOD NEGATIVE (NEGATIVE); URINE CLARITY Clear (Clear); URINE COLOR Yellow (YELLOW); URINE GLUCOSE (UA) NORMAL (Normal); URINE LEUKOCYTE ESTERASE NEG Leu/uL (Negative); URINE NITRATE NEGATIVE (NEGATIVE); URINE PROTEIN NEGATIVE (NEGATIVE); URINE UROBILINOGEN NORMAL mg/dL (0.2-1.0)
--- NOTE | 2017-09-19 20:23 | PN ---
DATE: 09/18/2017 SUBJECTIVE: The patient is 66-year-old male. The patient was seen and examined on 09/18/2017 at the bedside, looking comfortable. Chest pain is better. No shortness of breath. No nausea, vomiting or diarrhea. No hematuria or hematochezia. No swelling of the leg. No chest pain. No headache, no dizziness. PHYSICAL EXAMINATION: VITAL SIGNS: Temperature 98.2, pulse 104, blood pressure 127/76, respiratory rate 20. HEENT: Head, normocephalic, atraumatic. Eyes, PERRLA. Extraocular movements are intact. Conjunctivae clear. Nose patent. Mucous membranes moist. NECK: Supple. No carotid bruit. No JVD or thyromegaly. CHEST: Bilaterally symmetrical. HEART: S1 and S2 positive. LUNGS: Clear to auscultation. ABDOMEN: Soft, bowel sounds positive. No organomegaly. EXTREMITIES: No edema. No cyanosis. NEUROLOGIC: The patient is awake and alert. Moving all 4 extremities. No focal deficit. MEDICATIONS: Advair, DuoNeb, Ecotrin, Lovenox, Norvasc, Pepcid, Solu-Medrol, Tylenol. LABORATORY DATA: White blood cell 21.6, hemoglobin 14.1, hematocrit 43.1, platelets 210. ASSESSMENT AND PLAN: Mr. Maco Dawson is a 66-year-old male came with chest pain. Ultrasound done, 7 mm right lower pole cystic nodules, 13 mm left lower pole hypoechoic solid nodule in the thyroid gland. CT chest done. We will call Endocrinology consult. A 3 mm right upper pole suprapleural nodule. Echocardiography done, seen by Dr. Chepe Rodriguez, network field engineer. The patient came with chest pain, uncontrolled hypertension, waiting for network field engineer input, recent traveled to [place] and feels that the cold got stuck in his chest. His cough is almost from three months. According to the patient, he has too much stress, tachycardia, got metoprolol yesterday, dehydration, getting intravenous Solu-Medrol. Gastrointestinal and deep venous thrombosis prophylaxis. Discussion done with the patient's hospital nurse practitioner. We will follow up. Selena Henderson MD MTDD
[2017-09-20] MEDS: Albuterol-Ipratrop 3 mg / 0.5 (3 ml) UD INH SCH ×3 (01:39→13:20)
--- NOTE | 2017-09-20 07:23 | PN ---
DATE: 09/19/2017 SUBJECTIVE: The patient is a 66-year-old male. The patient is seen and examined at the bedside, looking comfortable. No nausea, vomiting or diarrhea. No hematuria or hematochezia. No swelling of the leg. No chest pain, no palpitation. No headache. No dizziness. Chest pain is better. Blood pressure is getting under control. PHYSICAL EXAMINATION: VITAL SIGNS: Temperature is 97.9, pulse is 110, respirations 20, blood pressure 120/80 , pulse oximetry 97. HEENT: Head is normocephalic, atraumatic. Eyes PERRLA. Extraocular muscles are intact. Conjunctivae clear. Nose is patent. Mucous membrane moist. NECK: Supple. No carotid bruit. No JVD or thyromegaly. CHEST: Bilaterally symmetrical. HEART: S1 and S2 positive. LUNGS: Clear to auscultation. ABDOMEN: Soft. Bowel sounds present. No organomegaly. EXTREMITIES: No edema. No cyanosis. NEUROLOGIC: Patient is awake and alert. Moving all four extremities. No focal deficits. MEDICATIONS: Tylenol, DuoNeb, Norvasc, Ecotrin, Lovenox, Pepcid, Solu-Medrol and Advair. LABORATORY DATA: Labs, white blood cell is 21.6, hemoglobin 14.1, hematocrit 43.1 and platelets 210. Sodium 133, potassium 4.9, BUN 90, creatinine 0.8 and glucose of 133. ASSESSMENT AND PLAN: Patient is a 66-year-old male with leukocytosis, hyperglycemia, came with high blood pressure, chest pain. Soft tissue ultrasound is done. CAT scan of the chest is done. Seen by Dr. Chepe Rodriguez, document management technician, but I do not know the planning. A 7 mm right lower pole cystic nodule in the thyroid, 13 mm left lower pole hypoechoic solid nodules. Endocrinology consult called, waiting for the input. CAT scan of the chest done also. Echocardiography done. A 3-mm right upper lobe subpleural nodule. Need a close followup. Pulmonary consult called. Repeat labs. Gastrointestinal and deep venous thrombosis prophylaxis. We will follow up. Selena Henderson MD [facility] # [id number] MTDD
[2017-09-20 07:53] LABS: ALB/GLOB RATIO 1.3 (1.0-2.1); ALBUMIN 3.9 g/dL (3.5-5.0); ALT/SGPT 46 U/L (21-72); AST/SGOT 34 U/L (17-59); BLOOD UREA NITROGEN 20 mg/dL (9-20); CALCIUM 8.8 mg/dl (8.6-10.4); GFR AFRICAN-AMERICAN > 60; GFR NON-AFRICAN AMERICAN > 60
[2017-09-20 08:01] LABS: T4 7.47 ug/dL (5.5-11.0)
--- NOTE | 2017-09-20 09:27 | CON ---
DATE: ENDOCRINOLOGY CONSULT HISTORY OF PRESENT ILLNESS: This is a 66-year-old male admitted with progressive shortness of breath and associated postoperative cough and pleuritic chest pain and evaluated for acute pneumonitis and supervening asthmatic bronchitis and started on IV steroid therapy as given and is now being referred for endocrine evaluation because of an incidental finding of thyroid nodules by CAT scan. Procedures as given. PAST MEDICAL HISTORY: As mentioned above, history of hypertension and dyslipidemia. FAMILY HISTORY: Positive for hypertension and heart disease. SOCIAL HISTORY: The patient has reported family. No known substance use. REVIEW OF SYSTEMS: As mentioned above. Admits for generalized body weakness with episodic bouts of dizziness and lightheadedness, worse on the day of admission, admits to precordial and left-sided pleuritic chest pain with productive cough and progressive shortness of breath, initially on exertion and then at rest, but denies any fevers, chills or rigors at this time. His oral intake has been variable with nausea, dyspepsia and vague upper abdominal pain. PHYSICAL EXAMINATION: VITAL SIGNS: He is an overweight male in no apparent distress with a blood pressure of 130/80, pulse of 100 beats per minute and regular, temperature 98, respirations 20. Height is 5 foot 3 inches, weight is 201 pounds. HEENT: Head normocephalic. Eyes anicteric with pink conjunctivae. Funduscopy, not possible at this time. Ears, nose, and throat otherwise normal.. NECK: Supple. Thyroid gland is normal in size. No carotid bruits or cervical adenopathy. CARDIOPULMONARY: Adynamic precordium. S1, S2 is rapid and regular. LUNGS: Clear to auscultation. ABDOMEN: Flat, soft with positive bowel sounds. EXTREMITIES: No peripheral edema. Pulses are +2 bilaterally. LABORATORY DATA: His chemistry showed a BUN of 19, sodium 133, potassium 4.9, chloride 101, CO2 26, glucose 133 and creatinine 0.8. His thyroid study is with a free T4 of 0.60 with a T3 of 1.46 and a TSH of 0.38. The neck ultrasound showed the presence of enlarged right and left lobes with the right lobe measuring 5.5 x 1.6 cm with small cystic nodules on the left lobe measuring 5.0 x 1.4 cm again with small hypoechoic nodules as noted. ASSESSMENT: This is a 66-year-old male with acute pneumonitis and supervening asthmatic bronchitis, currently on IV steroid therapy and evaluated also to be clinically euthyroid with sick euthyroid syndrome and superimposed slight TSH suppression related to the intercurrent IV steroid therapy as given. He also has an incidental finding of a multinodular goiter with no overt compressive symptoms and remains clinically and biochemically euthyroid at this time, most likely related to underlying autoimmune thyroiditis and/or just an idiopathic nodular goiter. PLAN OF MANAGEMENT: We will obtain a comprehensive thyroid hormonal profile with a total free T4 and TSH with that tomorrow. This also includes thyroid antibodies with a thyroid peroxidase antibody and a thyroglobulin panel to confirm and/or indicate the presence of underlying thyroid autoimmunity. There is no indication at this time for any kind of thyroid pharmacotherapy and/or not even an indication for a fine needle aspiration biopsy at this time, would recommend a repeat thyroid ultrasound in six months to a year and also repeat thyroid studies accordingly as an outpatient. We will obtain serial thyroid studies and expect normal improvement of his thyroid indices as his clinical status improved. With the tapering down of the IV steroids, should expect improvement of his TSH levels as noted. We will follow. Kaylie Owen MD
[2017-09-20] MEDS: Enoxaparin 40 mg Syringe SC SCH (09:33)
[2017-09-20] MEDS: MethylPREDNISolone 40 mg Vial IVP SCH (09:34)
[2017-09-20] MEDS: Fluticasone-Salmeterol 500-50mcg Diskus INH SCH (10:05)
[2017-09-20] MEDS ORDERED: Fluticasone Nasal 50 mcg/Spray NAS SCH (11:45)
[2017-09-20 12:15] LABS: B-TYPE NATRIURETIC PEPTIDE 111 pg/mL (0-900)
--- NOTE | 2017-09-20 14:23 | CT ---
CT sinuses History: Chronic cough. Comparison: None available. Technique: Multiple contiguous axial images were performed through the paranasal sinuses without the use of intravenous contrast. Subsequently, sagittal and coronal reformatted images were obtained. This CT exam was performed using one or more of the following dose reduction techniques: Automated exposure control, adjustment of the mA and/or kV according to patient size, and/or use of iterative reconstruction technique. Findings: Bilateral maxillary sinuses are preserved. Sphenoid sinus is preserved. Mild mucosal thickening of the ethmoid air cells. Moderate mucosal thickening and hypertrophy of the middle and inferior bilateral nasal turbinates; right greater than left. Nasal septal deviation. Orbital globes are preserved. Bilateral parotids appear preserved. Impression: Mild sinus mucosal disease as above.
[2017-09-20] MEDS ORDERED: Amoxicillin-Clav 875-125 mg Tab PO STA (15:27)
--- NOTE | 2017-09-20 15:45 | CP.PCM.PN ---
Subjective - Date & Time of Evaluation Date of Evaluation: 09/20/17 Time of Evaluation: 15:44 - Subjective Subjective: PT SEEN BY DR. WATT THIS MORNING AND CLEARED FOR D/C IF OK W CONSULTS. PER DR. NOWAK PT TO BE D/C WITH PPI FOR GERD. PER DR. UMANA MAY DC WITH 1 MONTH F/U FOR THYROID BLOOD TESTS. CT SINUSES ORDERED BY DR. REY AND SHOWS SINUSITIS, MAY D/C WITH PO ABX. DISCUSSED ALL FINDINGS AND RECOMMENDATIONS W PT. TO RECEIVE ONE DOSE OF PO AUGMENTIN PRIOR TO D/C. HE IS TO STOP ENALAPRIL AT HOME AND HAS BEEN RX AMLODIPINE. HE VERBALIZES UNDERSTANDING OF ALL D/C INSTRUCTIONS , F/U AND MEDICATIONS. NO FURTHER ORDERS. Objective - Vital Signs/Intake and Output Vital Signs (last 24 hours): Temp Pulse Resp BP Pulse Ox 98.2 F 109 H 18 128/85 96 09/20/17 08:24 09/20/17 08:24 09/20/17 08:24 09/20/17 08:24 09/20/17 08:24 - Medications Medications: Current Medications Acetaminophen (Tylenol 325mg Tab) 650 mg PO Q4H PRN PRN Reason: pain fever Last Admin: 09/20/17 09:34 Dose: 650 mg Albuterol/Ipratropium (Duoneb 3 Mg/0.5 Mg (3 Ml) Ud) 3 ml INH RQ6 [facility] Last Admin: 09/20/17 13:20 Dose: 3 ml Amlodipine Besylate (Norvasc) 5 mg PO DAILY [facility] Last Admin: 09/20/17 09:35 Dose: 5 mg Aspirin (Ecotrin) 81 mg PO HS [facility] Last Admin: 09/19/17 21:58 Dose: 81 mg Enoxaparin Sodium (Lovenox) 40 mg SC DAILY [facility] Last Admin: 09/20/17 09:33 Dose: 40 mg Famotidine (Pepcid) 40 mg PO DAILY [facility] Last Admin: 09/20/17 09:35 Dose: 40 mg Fluticasone Propionate (Flonase) 1 spr NAOMY BID [facility] Last Admin: 09/20/17 13:55 Dose: 1 spray Methylprednisolone (Solu-Medrol) 20 mg IVP Q12 [facility]LES Fluticasone/Salmeterol (Advair Diskus 500/50) 1 puff INH RQ12 [facility] Last Admin: 09/20/17 10:05 Dose: Not Given - Labs Labs: 09/19/17 08:16 09/20/17 06:58 PT 12.2 SECONDS (9.7-12.2) 09/16/17 10:16 INR 1.1 09/16/17 10:16 APTT 34 SECONDS (21-34) 09/16/17 10:16
[2017-09-20 16:08] VITALS: PULSE 97
[2017-09-20 16:40] VITALS: BP 116/63; RESP 20; TEMP 97.8; O2SAT 99
[2017-09-20] MEDS ORDERED: MethylPREDNISolone 40 mg Vial IVP SCH (22:00)
--- NOTE | 2017-09-21 08:43 | CP.PCM.CON ---
History of Present Illness - History of Present Illness History of Present Illness: late entry. patient was seen and examined yesterday and also discussed with the residents Patient is a 66 year old male with history of HTN who came to the ED for 2 week history of chest pain associated with dry cough. He reports that he had cold- like symptoms 2 months ago and has had a persistent dry cough since. Now he states that he has a sore throat with a cough at night and early in the morning. Also complains that his eyes are watery, and he feels like his face is inflammed. Recently travelled to [facility]. He denies history of GERD or asthma. Initial CXR revealed 2.2 cm rounded density of RLL which was considered likely artifact since it was not seen in later CT chest. CT chest revealed 3mm right upper lobe subpleural nodule. PMH: HTN PSH: none Social hx: Denies smoking, ETOH, illicit drug use. Used to work as a [employer] worker 2 years ago. Stopped working to take care of his grandchildren. Meds: see MAR Allergies: NKDA Assessment and plan 66 year old male with history of HTN who came to the ED for 2 week history of chest pain associated with dry cough. CT chest revealed 3mm right upper lobe subpleural nodule. Pulmonology consulted for evaluation of cough, and nodule found on CT chest. Dry Cough, possibly due to pneumonia, sinusitis Single pulmonary nodule 09/16/17 CXR: 2.2 cm rounded density at the right lower lobe; suggest further evaluation with chest CT. 09/17/17 CT chest without contrast: 6 mm right lower pole thyroid hypodense nodule. Suggest follow-up nonemergent thyroid ultrasound for further evaluation if indicated. 3 mm right upper lobe subpleural nodule. In the absence of risk factors for lung cancer, no specific imaging follow-up is required. If the patient is a smoker or has other risk factors, follow-up CT at 12 months is recommended to document stability. Please note that nodular density seen on chest x-ray performed 09/16/17 measuring approximately 2.2 cm in the right lower lobe is not identified on this study. Finding likely reflected artifact, possibly external. 09/20/[address] Bilateral maxillary sinuses are preserved. Sphenoid sinus is preserved. Mild mucosal thickening of the ethmoid air cells. Moderate mucosal thickening and hypertrophy of the middle and inferior bilateral nasal turbinates; right greater than left. Nasal septal deviation. Orbital globes are preserved. Bilateral parotids appear preserved. Afebrile O2 sat 96% on RA WBC (09/16) 8.6 -> (09/19) 21.6 Follow up on pulmonary nodule outpatient Meds: Duoneb 3ml R Q6 Flonase 1 spray BID Solumedrol 20mg IVP Q 12 Abx Past Patient History - Infectious Disease Hx of Infectious Diseases: None - Past Medical History & Family History Past Medical History?: Yes - Past Social History Smoking Status: Never Smoked - CARDIAC Hx Hypertension: Yes - PULMONARY Hx Respiratory Disorders: No - NEUROLOGICAL Hx Neurological Disorder: No - RENAL Hx Chronic Kidney Disease: No - ENDOCRINE/METABOLIC Hx Endocrine Disorders: No - HEMATOLOGICAL/ONCOLOGICAL Hx Blood Disorders: No - INTEGUMENTARY Hx Dermatological Problems: No - MUSCULOSKELETAL/RHEUMATOLOGICAL Hx Musculoskeletal Disorders: No Hx Falls: No Other/Comment: LT knee problem - having PT - GASTROINTESTINAL Hx Gastrointestinal Disorders: No - GENITOURINARY/GYNECOLOGICAL Hx Genitourinary Disorders: No - PSYCHIATRIC Hx Psychophysiologic Disorder: No Hx Substance Use: No - SURGICAL HISTORY Hx Surgeries: No - ANESTHESIA Hx Anesthesia: No Hx Anesthesia Reactions: No Hx Malignant Hyperthermia: No Has any member of the family had a problem w/ anesthesia?: No Meds Home Medications: Home Medication List Medication Instructions Recorded Confirmed Type Amoxicillin/Clavulanate [Augmentin 1 tab PO Q12 #14 tab 09/20/17 Rx 875 MG-125 MG] Fluticasone Propionate [Flonase] 1 spr NAOMY BID #1 bottle 09/20/17 Rx Omeprazole 20 mg PO DAILY #30 capsule. 09/20/17 Rx amLODIPine [Norvasc] 5 mg PO DAILY #30 tab 09/20/17 Rx Allergies/Adverse Reactions: Allergies Allergy/AdvReac Type Severity Reaction Status Date / Time No Known Allergies Allergy Verified 09/16/17 08:55 Results - Vital Signs Recent Vital Signs: Last Vital Signs Temp 97.8 F 09/20/17 15:00 Pulse 97 H 09/20/17 16:04 Resp 20 09/20/17 15:00 BP 116/63 09/20/17 15:00 Pulse Ox 99 09/20/17 15:00 - Labs Result Diagrams: 09/19/17 08:16 09/20/17 06:58 Labs: Laboratory Results - last 24 hr 09/20/17 06:58 Sodium 133 Potassium 4.9 Chloride 97 L Carbon Dioxide 28 Anion Gap 13 BUN 20 Creatinine 0.8 Est GFR ( Amer) > 60 Est GFR (Non-Af Amer) > 60 Random Glucose 141 H Calcium 8.8 Total Bilirubin 0.6 AST 34 ALT 46 Alkaline Phosphatase 72 NT-Pro-B Natriuret Pep 111 Total Protein 7.0 Albumin 3.9 Globulin 3.1 Albumin/Globulin Ratio 1.3 Thyroxine (T4) 7.47 TSH 3rd Generation 0.27 L
--- NOTE | 2017-09-21 08:46 | PN ---
DATE: ENDOCRINOLOGY FOLLOWUP NOTE LOCATION: Room 650. SUBJECTIVE: This is a 66-year-old male with recent admission for marked hyperglycemic accelerations and supervening cutaneous rash and was started on IV steroid therapy, currently on a tapering dose and developed hyperglycemic accelerations as noted thereof. His glycemic levels are fluctuating but much improved at this time with the latest glucose levels have ranged from 133 to 141 mg/dL. His latest chemistry showed a BUN of 20, sodium 133, potassium 4.9, chloride 97, CO2 of 28, glucose 141, and creatinine 3.8 with A1c 6.6%. His latest thyroid studies showed a T4 of 7.47 with a free T4 of 0.89 and a suppressed TSH of 0.27, most likely indicative of the so-called acute sick euthyroid syndrome related to the underlying IV steroid therapy with transient TSH suppression as noted thereof. Moreover, he also has underlying multinodular goiter with no overt compressive or obstructive manifestations thereof. ASSESSMENT: This is a 66-year-old male with acute pneumonitis and currently on a tapering IV steroid dosing regimen with Solu-Medrol given as 20 mg every 12 hours as ordered with expected hyperglycemic accelerations temporarily because of intercurrent increased insulin resistance thereof. PLAN OF MANAGEMENT: Plan of management was discussed with the patient and staff. We will observe his glycemic fluctuations over the last day or so and determine the need for any basal insulin and/or oral hypoglycemic drug therapy given in a very low dose as indicated. The transient TSH suppression expected with intercurrent drug therapy should be stopped at this time. We will start to look at the plan of management. We will continue observing his glycemic fluctuations and as hyperglycemic levels persist, then we will start him on a more physiologic basal and bolus insulin regimen as ordered. Moreover, we will obtain thyroid antibodies, which will confirm and/or indicate the presence of thyroid autoimmunity . Plan of management was discussed with the patient and staff. We will glycemic profile and . We will follow. Kaylie Owen MD
[2017-09-21 23:33] LABS: THYROGLOBULIN 8.6 ng/mL (2.8-40.9)
[2017-09-22 19:18] LABS: TSI <89 % baseline (<140)
== END 2017-09-20 17:04 | disposition home or self-care (01) | DRG 90 ==
LOC: C.ER 08:42 → C.9E 11:41 → C.6T 15:48 → OBSVTOIN 09-18 17:53
PROVIDERS: ADMIT Internal Medicine; ATTEND Internal Medicine
DX: J18.9 Pneumonia, unspecified organism (principal); E04.2 Nontoxic multinodular goiter; I10 Essential (primary) hypertension; E78.5 Hyperlipidemia, unspecified; R73.9 Hyperglycemia, unspecified; J45.909 Unspecified asthma, uncomplicated; E07.81 Sick-euthyroid syndrome; R00.0 Tachycardia, unspecified; K21.9 Gastro-esophageal reflux disease without esophagitis; T38.0X5A Adverse effect of glucocorticoids and synthetic analogues, initial encounter

== ENCOUNTER 2018-09-15 20:31 | Emergency (ER) | payer MEDICAID, OTHER ==
[2018-09-15 20:31] VITALS: PULSE 128; BMI 35.6
[2018-09-15 20:49] VITALS: RESP 20; O2SAT 98
--- NOTE | 2018-09-15 21:49 | C.PDOC ---
History Of Present Illness 67 year old male presents to the ED for evaluation of URI symptoms which began around one week ago. Patient reports sore throat, runny nose, and eye discomfort. Patient's also reports that patient has increased cough during the night time. His has been giving him cough medicine and Naproxen without relief. Patient denies fever, chills, nausea, vomiting. Chief Complaint (Nursing): Flu-like Symptoms History Per: Patient, Family History/Exam Limitations: no limitations Onset/Duration Of Symptoms: Other (one week ) Current Symptoms Are (Timing): Still Present Location Of Pain: Throat Associated Symptoms: Sore Throat, Cough, Other (runny nose ). denies: Fever, Chills, Vomiting Additional History Per: Patient, Family Past Medical History Reviewed: Historical Data, Nursing Documentation, Vital Signs Vital Signs: Last Vital Signs Temp 98.1 F 09/15/18 20:44 Pulse 111 H 09/15/18 20:44 Resp 20 09/15/18 20:44 BP 145/91 H 09/15/18 20:44 Pulse Ox 98 09/15/18 20:44 - Medical History PMH: HTN Denies: Colonic Polyps, Chronic Kidney Disease Surgical History: No Surg Hx Family History: States: Unknown Family Hx - Social History Hx Tobacco Use: No Hx Alcohol Use: No Hx Substance Use: No - Immunization History Hx Tetanus Toxoid Vaccination: No Hx Influenza Vaccination: No Hx Pneumococcal Vaccination: No Review Of Systems Constitutional: Negative for: Fever, Chills, Weakness Eyes: Positive for: Other (eye discomfort ). Negative for: Redness ENT: Positive for: Nose Discharge, Throat Pain. Negative for: Mouth Swelling Cardiovascular: Negative for: Chest Pain Respiratory: Positive for: Cough. Negative for: Shortness of Breath Gastrointestinal: Negative for: Nausea, Vomiting Genitourinary: Negative for: Dysuria, Frequency, Hematuria Musculoskeletal: Negative for: Back Pain Skin: Negative for: Rash Neurological: Negative for: Weakness, Numbness, Dizziness Physical Exam - Physical Exam Appears: Well, Non-toxic, No Acute Distress Skin: Normal Color, Warm, No Rash Head: Atraumatic, Normacephalic Eye(s): bilateral: PERRL, EOMI, Other (conjunctival injection) Ear(s): Bilateral: Normal Nose: Other (rhinorrhea ) Oral Mucosa: Moist Throat: Normal (no swelling or injection ), No Erythema, No Exudate, No Drooling, Other (airway patent ) Neck: Normal ROM, Supple Chest: Symmetrical Respiratory: No Accessory Muscle Use, Other (normal inspiratory effort ) Gastrointestinal/Abdominal: Soft, No Distention Back: Other (ambulating with steady upright gait ) Extremity: Normal ROM Extremity: Bilateral: Atraumatic Neurological/Psych: Oriented x3, Normal Cranial Nerves (grossly intact ) ED Course And Treatment O2 Sat by Pulse Oximetry: 98 (on RA) Pulse Ox Interpretation: Normal Medical Decision Making Medical Decision Making: Physical exam findings are indicative of a URI. Motrin PO given. Symptomatic treatment explained to patient. Will prescribe eye drops. Will prescribe albuterol inhaler for cough in case caused by bronchospasm. Disposition Counseled Patient/Family Regarding: Diagnosis, Need For Followup, Rx Given - Disposition Disposition: HOME/ ROUTINE Disposition Time: 21:48 Condition: STABLE Prescriptions: Albuterol HFA [Ventolin HFA 90 mcg/actuation (8 g)] 2 puff IH [id number] #1 inhaler Cetirizine HCl/Pseudoephedrine [Zyrtec-D Tablet] 1 each PO DAILY #14 tab.er.12h Tobramycin 0.3% [Tobrex 0.3% Ophth Soln] 5 drop OS QID #1 bottle Instructions: Viral Upper Respiratory Infection, Adult (DC) Forms: [facility] ([place]), General Discharge Instructions - Clinical Impression Clinical Impression: Upper respiratory infection - PA / [employer] / Resident Statement MD/DO has reviewed & agrees with the documentation as recorded. - Scribe Statement The provider has reviewed the documentation as recorded by the Scribe (Stella Hoffmann) All medical record entries made by the Scribe were at my direction and personally dictated by me. I have reviewed the chart and agree that the record accurately reflects my personal performance of the history, physical exam, medical decision making, and the department course for this patient. I have also personally directed, reviewed, and agree with the discharge instructions and disposition.
[2018-09-15 22:31] VITALS: BP 141/73; PULSE 67; TEMP 98
== END 2018-09-15 22:00 | disposition home or self-care (01) ==
LOC: C.ER 20:31
DX: J06.9 Acute upper respiratory infection, unspecified (principal); I10 Essential (primary) hypertension